=== PATIENT | female | born 1995 | race Caucasian/White ===

== ENCOUNTER 2017-03-01 19:35 | Emergency (ER) | payer SELFPAY ==
[2017-03-01 19:48] VITALS: BP 87/60; PULSE 89; TEMP 98.1; BMI 20.1
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
== END 2017-03-01 21:01 | disposition home or self-care (01) ==
LOC: FER 19:35
DX: R06.4 Hyperventilation (principal)
CPT/HCPCS: 99282-25